=== PATIENT | male | born 1950 | race Caucasian/White ===

== ENCOUNTER 2020-10-15 21:19 | Inpatient (IN) | payer OTHER ==
[~2020-10-15] VITALS: Ht 177.8 cm; Wt 59.4 kg
[2020-10-16] MEDS ORDERED: LORazepam 2 MG TABLET PO PRN (01:15)
[2020-10-16] MEDS ORDERED: QUEtiapine FUMARATE 100 MG TABLET PO PRN (01:15)
[2020-10-16 01:18] LABS: BASOPHILS % (AUTO) 0.1 % (0.0-2.0); EOSINOPHILS % (AUTO) 0.6 % (1.0-6.0); HEMATOCRIT 34.5 % (41-53); HEMOGLOBIN 11.2 g/dL (13.5-17.5); LYMPHOCYTES # (AUTO) 1.4 K/uL (1.0-4.8); LYMPHOCYTES % (AUTO) 8.5 % (22.0-44.0); MEAN CORPUSCULAR HEMOGLOBIN 22.9 pg (26.0-34.0); MEAN CORPUSCULAR HGB CONC 32.6 G/dL (31.0-37.0); MEAN CORPUSCULAR VOLUME 70 fL (80-100); MONOCYTES # (AUTO) 1.1 K/uL (0.1-1.0); MONOCYTES % (AUTO) 6.4 % (2.0-9.0); NEUTROPHILS # (AUTO) 13.9 K/uL (1.8-7.7); NEUTROPHILS % (AUTO) 84.4 % (40.0-70.0); PLATELET COUNT (AUTO) 300 K/uL (150-450); RED CELL DISTRIBUTION WIDTH 17.1 % (11.5-14.5)
[2020-10-16 01:25] LABS: ANION GAP 9 mmol/L (8-16); CALCIUM, TOTAL 9.3 mg/dL (8.8-10.5); CARBON DIOXIDE 27 mmol/L (22-29); CHLORIDE 98 mmol/L (98-107); CREATININE 0.69 mg/dL (0.60-1.30); GLUCOSE,RANDOM 120 mg/dL (70-110); POTASSIUM 3.7 mmol/L (3.5-5.1); SODIUM SERUM 134 mmol/L (136-145); UREA NITROGEN, BLOOD 11 mg/dL (7-18)
[2020-10-16 01:37] LABS: ALANINE AMINOTRANSFERASE 23 U/L (12-78); ALBUMIN 2.1 g/dL (3.4-5.0); ALKALINE PHOSPHATASE 193 U/L (46-116); ASPARTATE AMINOTRANSFERASE 28 U/L (15-37); BILIRUBIN,TOTAL 0.8 mg/dL (0.1-1.0); TOTAL PROTEIN, SERUM 7.4 g/dL (6.4-8.2)
[2020-10-16 01:38] LABS: GLOMERULAR FILTR. RATE CALC > 60 mL/min (>60)
[2020-10-16 03:13] LABS: APPEARANCE,URINE CLOUDY (CLEAR); GLUCOSE, URINE (UA) NEGATIVE (NEGATIVE); KETONES,URINE 15 mg/dL (NEGATIVE); LEUKOCYTE ESTERASE ,URINE SMALL (NEGATIVE); NITRATE,URINE NEGATIVE (NEGATIVE); OCCULT BLOOD,URINE NEGATIVE (NEGATIVE); PH,URINE 5.5 (5.0-8.0); PROTEIN,URINE NEGATIVE (NEGATIVE)
[2020-10-16 03:19] LABS: AMPHET/METH SCREEN,URINE NEGATIVE (NEGATIVE); BARBITURATE SCREEN, URINE NEGATIVE (NEGATIVE); BENZODIAZEPINES SCREEN,URINE NEGATIVE (NEGATIVE); CANNABINOID SCREEN,URINE NEGATIVE (NEGATIVE); COCAINE SCREEN,URINE NEGATIVE (NEGATIVE); METHADONE SCREEN, URINE NEGATIVE (NEGATIVE); OPIATE SCREEN,URINE NEGATIVE (NEGATIVE)
[2020-10-16 03:21] LABS: BILIRUBIN,URINE PRELIM. POSITIVE (NEGATIVE); PHENCYCLIDINE SCREEN,URINE NEGATIVE (NEGATIVE)
[2020-10-16 04:12] LABS: AMORPHOUS SEDIMENT,UR Few /LPF (None Seen); BACTERIA,URINE Few /HPF (None Seen); CALCIUM OXALATE CRYSTALS,UR Few /LPF (None Seen); RBC,URINE 0-2 /HPF (0-2)
[2020-10-16 06:47] LABS: COVID AG,FIA SOURCE NASOPHARYNGEAL
[2020-10-16] MEDS ORDERED: 0.9% SODIUM CHLORIDE 10 ML SYRINGE IVP PRN (10:45)
[2020-10-16] MEDS ORDERED: SODIUM CHLORIDE 0.9% 1,650 ML IV ONE (10:45)
[2020-10-16] MEDS ORDERED: ACETAMINOPHEN 500 MG/ISO-OSM 50 ML IV ONE (10:45)
[2020-10-16 11:21] LABS: BASOPHILS % (AUTO) 0.8 % (0.0-2.0); HEMATOCRIT 34.3 % (41-53); HEMOGLOBIN 11.1 g/dL (13.5-17.5); LYMPHOCYTES # (AUTO) 1.3 K/uL (1.0-4.8); MEAN CORPUSCULAR HEMOGLOBIN 23.1 pg (26.0-34.0); MEAN CORPUSCULAR HGB CONC 32.4 G/dL (31.0-37.0); MEAN CORPUSCULAR VOLUME 71 fL (80-100); MONOCYTES # (AUTO) 1.2 K/uL (0.1-1.0); MONOCYTES % (AUTO) 6.4 % (2.0-9.0); NEUTROPHILS # (AUTO) 15.7 K/uL (1.8-7.7); NEUTROPHILS % (AUTO) 84.8 % (40.0-70.0); PLATELET COUNT (AUTO) 298 K/uL (150-450); RED BLOOD CELL COUNT(AUTO) 4.81 MIL/uL (4.50-5.90); RED CELL DISTRIBUTION WIDTH 17.2 % (11.5-14.5)
[2020-10-16 11:29] LABS: ANION GAP 10 mmol/L (8-16); CALCIUM, TOTAL 9.3 mg/dL (8.8-10.5); CARBON DIOXIDE 26 mmol/L (22-29); CHLORIDE 98 mmol/L (98-107); CREATININE 0.59 mg/dL (0.60-1.30); GLOMERULAR FILTR. RATE CALC > 60 mL/min (>60); GLUCOSE,RANDOM 95 mg/dL (70-110); POTASSIUM 3.8 mmol/L (3.5-5.1); SODIUM SERUM 134 mmol/L (136-145); UREA NITROGEN, BLOOD 10 mg/dL (7-18)
[2020-10-16 11:31] LABS: INR 1.3 (0.9-1.1); PROTHROMBIN TIME 13.4 SEC (9.4-11.6)
[2020-10-16 11:35] LABS: ALANINE AMINOTRANSFERASE 20 U/L (12-78); ALBUMIN 2.1 g/dL (3.4-5.0); ALKALINE PHOSPHATASE 186 U/L (46-116); ASPARTATE AMINOTRANSFERASE 28 U/L (15-37); CREATINE KINASE, TOTAL ONLY 50 U/L (39-308); TOTAL PROTEIN, SERUM 7.3 g/dL (6.4-8.2)
[2020-10-16 11:39] LABS: LACTIC ACID 0.9 mmol/L (0.4-2.0)
[2020-10-16 11:46] LABS: B-TYPE NATRIURETIC PEPTIDE 51 pg/mL (0-100)
[2020-10-16] MEDS ORDERED: SODIUM CHLORIDE 0.9% 1,000 ML IV ONE (12:30)
[2020-10-16] MEDS ORDERED: SODIUM CHLORIDE 0.9% 250 ML IV ONE (14:00)
[2020-10-16] MEDS: SODIUM CHLORIDE 0.9% 1,000 ML IV SCH (15:43)
[2020-10-17 02:20] LABS: HDL CHOLESTEROL 25 mg/dL (40-60); TRIGLYCERIDES 94 mg/dL (15-150)
[2020-10-17 03:23] LABS: CHOLESTEROL 176 mg/dL (131-200); LDL CHOL (CALC.) 132 mg/dL (0-130)
[2020-10-17] MEDS: SODIUM CHLORIDE 0.9% 1,000 ML IV SCH ×2 (04:20→19:59)
[2020-10-17] MEDS: CefTRIAXone 1 GM/DEXTROSE 50 ML IV SCH (14:42)
[2020-10-17] MEDS: AZITHROMYCIN 500 MG/NS 250 ML IV SCH (14:42)
[2020-10-17 18:27] VITALS: BP 101/60
[2020-10-17 19:36] VITALS: BP 125/76
[2020-10-18] VITALS (7 sets, daily range): BP systolic 91–110; BP diastolic 57–74
[2020-10-18] MEDS: SODIUM CHLORIDE 0.9% 1,000 ML IV SCH (08:28)
[2020-10-18] MEDS: CefTRIAXone 1 GM/DEXTROSE 50 ML IV SCH (13:46)
[2020-10-18 14:20] LABS: BASOPHILS % (AUTO) 0.3 % (0.0-2.0); EOSINOPHILS % (AUTO) 3.7 % (1.0-6.0); HEMATOCRIT 32.4 % (41-53); HEMOGLOBIN 10.2 g/dL (13.5-17.5); LYMPHOCYTES # (AUTO) 1.2 K/uL (1.0-4.8); LYMPHOCYTES % (AUTO) 8.2 % (22.0-44.0); MEAN CORPUSCULAR HEMOGLOBIN 22.6 pg (26.0-34.0); MEAN CORPUSCULAR HGB CONC 31.5 G/dL (31.0-37.0); MEAN CORPUSCULAR VOLUME 72 fL (80-100); MONOCYTES # (AUTO) 0.9 K/uL (0.1-1.0); MONOCYTES % (AUTO) 6.1 % (2.0-9.0); NEUTROPHILS # (AUTO) 11.8 K/uL (1.8-7.7); NEUTROPHILS % (AUTO) 81.7 % (40.0-70.0); PLATELET COUNT (AUTO) 290 K/uL (150-450); RED BLOOD CELL COUNT(AUTO) 4.51 MIL/uL (4.50-5.90); RED CELL DISTRIBUTION WIDTH 17.2 % (11.5-14.5)
[2020-10-18 14:37] LABS: ANION GAP 11 mmol/L (8-16); CARBON DIOXIDE 25 mmol/L (22-29); CHLORIDE 99 mmol/L (98-107); GLUCOSE,RANDOM 112 mg/dL (70-110); POTASSIUM 3.1 mmol/L (3.5-5.1); SODIUM SERUM 135 mmol/L (136-145); UREA NITROGEN, BLOOD 5 mg/dL (7-18)
[2020-10-18 14:40] LABS: ALANINE AMINOTRANSFERASE 20 U/L (12-78); ALBUMIN 1.5 g/dL (3.4-5.0); ALKALINE PHOSPHATASE 217 U/L (46-116); ASPARTATE AMINOTRANSFERASE 43 U/L (15-37); BILIRUBIN,TOTAL 0.6 mg/dL (0.1-1.0); TOTAL PROTEIN, SERUM 5.9 g/dL (6.4-8.2)
[2020-10-18 14:42] LABS: GLOMERULAR FILTR. RATE CALC > 60 mL/min (>60)
[2020-10-18] MEDS: AZITHROMYCIN 500 MG/NS 250 ML IV SCH (15:20)
[2020-10-18] MEDS ORDERED: POTASSIUM CHL 10 MEQ/WATER 50 ML IV PRN (18:15)
[2020-10-18] MEDS: POTASSIUM CHLORIDE 20 MEQ ER TABLET PO PRN (18:24)
[2020-10-19] MEDS: SODIUM CHLORIDE 0.9% 1,000 ML IV SCH ×2 (03:59→16:12)
[2020-10-19 04:15] VITALS: BP 122/64
[2020-10-19 07:25] VITALS: BP 111/68
[2020-10-19 08:49] LABS: BASOPHILS % (AUTO) 0.2 % (0.0-2.0); EOSINOPHILS % (AUTO) 3.5 % (1.0-6.0); HEMATOCRIT 32.5 % (41-53); HEMOGLOBIN 10.4 g/dL (13.5-17.5); LYMPHOCYTES # (AUTO) 1.4 K/uL (1.0-4.8); LYMPHOCYTES % (AUTO) 9.8 % (22.0-44.0); MEAN CORPUSCULAR HEMOGLOBIN 22.8 pg (26.0-34.0); MEAN CORPUSCULAR VOLUME 71 fL (80-100); MONOCYTES # (AUTO) 1.1 K/uL (0.1-1.0); MONOCYTES % (AUTO) 7.5 % (2.0-9.0); NEUTROPHILS # (AUTO) 11.2 K/uL (1.8-7.7); PLATELET COUNT (AUTO) 290 K/uL (150-450); RED BLOOD CELL COUNT(AUTO) 4.56 MIL/uL (4.50-5.90); RED CELL DISTRIBUTION WIDTH 17.7 % (11.5-14.5)
[2020-10-19 09:05] LABS: INR 1.3 (0.9-1.1); PROTHROMBIN TIME 13.6 SEC (9.4-11.6)
[2020-10-19 09:08] LABS: ALANINE AMINOTRANSFERASE 28 U/L (12-78); ALBUMIN 1.7 g/dL (3.4-5.0); ALKALINE PHOSPHATASE 236 U/L (46-116); ANION GAP 10 mmol/L (8-16); ASPARTATE AMINOTRANSFERASE 60 U/L (15-37); BILIRUBIN,TOTAL 0.8 mg/dL (0.1-1.0); CARBON DIOXIDE 25 mmol/L (22-29); CHLORIDE 100 mmol/L (98-107); CREATININE 0.51 mg/dL (0.60-1.30); GLUCOSE,RANDOM 82 mg/dL (70-110); POTASSIUM 3.9 mmol/L (3.5-5.1); SODIUM SERUM 135 mmol/L (136-145); TOTAL PROTEIN, SERUM 6.2 g/dL (6.4-8.2); UREA NITROGEN, BLOOD 3 mg/dL (7-18)
[2020-10-19 09:09] LABS: GLOMERULAR FILTR. RATE CALC > 60 mL/min (>60)
[2020-10-19 11:02] VITALS: BP 102/59
[2020-10-19 13:11] LABS: PHOSPHORUS 2.4 mg/dL (2.5-4.9)
[2020-10-19] MEDS: AZITHROMYCIN 500 MG/NS 250 ML IV SCH (14:00)
[2020-10-19] MEDS: CefTRIAXone 1 GM/DEXTROSE 50 ML IV SCH (14:19)
[2020-10-19 15:01] VITALS: BP 91/62
[2020-10-19] MEDS: MIRTAZAPINE 15 MG TABLET PO SCH (19:47)
[2020-10-19 19:52] VITALS: BP 104/62
[2020-10-20] VITALS (8 sets, daily range): BP systolic 89–119; BP diastolic 46–72
[2020-10-20] MEDS: THIAMINE 100 MG TABLET PO SCH (09:00)
[2020-10-20] MEDS: CefTRIAXone 1 GM/DEXTROSE 50 ML IV SCH (14:18)
[2020-10-20] MEDS: SODIUM CHLORIDE 0.9% 1,000 ML IV SCH (21:00)
[2020-10-20] MEDS: MIRTAZAPINE 15 MG TABLET PO SCH (21:00)
[2020-10-21] MEDS: AZITHROMYCIN 500 MG/NS 250 ML IV SCH ×2 (04:23→14:37)
[2020-10-21 04:27] VITALS: BP 110/52
[2020-10-21 08:00] VITALS: BP 109/48
[2020-10-21] MEDS: THIAMINE 100 MG TABLET PO SCH (08:23)
[2020-10-21] MEDS ORDERED: LORazepam 2 MG/ML VIAL IVP ONE ×2 (10:15)
[2020-10-21] MEDS: SODIUM CHLORIDE 0.9% 1,000 ML IV SCH (10:51)
[2020-10-21] MEDS ORDERED: NALOXONE HCL 0.4 MG/ML VIAL ONE (11:32)
[2020-10-21] MEDS ORDERED: FentaNYL CITRATE PF 100 MCG/2 ML VIAL ONE (11:32)
[2020-10-21] MEDS ORDERED: MIDAZOLAM HCL 2 MG/2 ML VIAL ONE (11:32)
[2020-10-21] MEDS ORDERED: FLUMAZENIL 0.1 MG/ML 5 ML VIAL IVP ONE (11:32)
[2020-10-21] MEDS ORDERED: MIDAZOLAM HCL 2 MG/2 ML VIAL IVP ONE ×2 (12:00→12:10)
[2020-10-21 12:57] VITALS: BP 138/89
[2020-10-21] MEDS: CefTRIAXone 1 GM/DEXTROSE 50 ML IV SCH (14:44)
[2020-10-21 15:57] VITALS: BP 100/64
[2020-10-21 19:34] VITALS: BP 113/81
[2020-10-21] MEDS: HEPARIN SODIUM,PORCINE 5,000 UNITS/ML VIAL SQ SCH ×2 (20:13→20:16)
[2020-10-21] MEDS: MIRTAZAPINE 15 MG TABLET PO SCH (20:13)
[2020-10-21 23:09] VITALS: BP 104/66
[2020-10-22] MEDS: SODIUM CHLORIDE 0.9% 1,000 ML IV SCH ×2 (03:27→20:05)
[2020-10-22] MEDS: AZITHROMYCIN 500 MG/NS 250 ML IV SCH (04:08)
[2020-10-22 04:12] VITALS: BP 102/62
[2020-10-22 06:05] LABS: BASOPHILS % (AUTO) 0.8 % (0.0-2.0); EOSINOPHILS % (AUTO) 3.9 % (1.0-6.0); HEMATOCRIT 32.8 % (41-53); HEMOGLOBIN 10.2 g/dL (13.5-17.5); LYMPHOCYTES # (AUTO) 1.8 K/uL (1.0-4.8); MEAN CORPUSCULAR HEMOGLOBIN 22.4 pg (26.0-34.0); MEAN CORPUSCULAR HGB CONC 31.1 G/dL (31.0-37.0); MEAN CORPUSCULAR VOLUME 72 fL (80-100); MONOCYTES # (AUTO) 1.6 K/uL (0.1-1.0); NEUTROPHILS # (AUTO) 11.9 K/uL (1.8-7.7); NEUTROPHILS % (AUTO) 74.3 % (40.0-70.0); PLATELET COUNT (AUTO) 324 K/uL (150-450); RED BLOOD CELL COUNT(AUTO) 4.56 MIL/uL (4.50-5.90); RED CELL DISTRIBUTION WIDTH 17.3 % (11.5-14.5)
[2020-10-22 06:22] LABS: ALANINE AMINOTRANSFERASE 20 U/L (12-78); ALBUMIN 1.6 g/dL (3.4-5.0); ALKALINE PHOSPHATASE 194 U/L (46-116); ANION GAP 11 mmol/L (8-16); ASPARTATE AMINOTRANSFERASE 42 U/L (15-37); BILIRUBIN,TOTAL 0.8 mg/dL (0.1-1.0); CALCIUM, TOTAL 8.1 mg/dL (8.8-10.5); CARBON DIOXIDE 21 mmol/L (22-29); CHLORIDE 101 mmol/L (98-107); GLOMERULAR FILTR. RATE CALC > 60 mL/min (>60); GLUCOSE,RANDOM 65 mg/dL (70-110); POTASSIUM 3.4 mmol/L (3.5-5.1); SODIUM SERUM 133 mmol/L (136-145); TOTAL PROTEIN, SERUM 6.1 g/dL (6.4-8.2); UREA NITROGEN, BLOOD 3 mg/dL (7-18)
[2020-10-22 07:24] VITALS: BP 106/71
[2020-10-22] MEDS: HEPARIN SODIUM,PORCINE 5,000 UNITS/ML VIAL SQ SCH ×2 (09:00→20:10)
[2020-10-22] MEDS ORDERED: SODIUM CHLORIDE 0.9% 1,000 ML ONE (12:48)
[2020-10-22] MEDS ORDERED: SODIUM CHLORIDE 0.9% 1,000 ML IV ONE (13:00)
[2020-10-22] MEDS ORDERED: RINGERS SOLUTION,LACTATED 1,000 ML IV ONE (13:16)
[2020-10-22 15:36] VITALS: BP 100/60
[2020-10-22] MEDS: CefTRIAXone 1 GM/DEXTROSE 50 ML IV SCH (16:10)
[2020-10-22] MEDS: THIAMINE 100 MG TABLET PO SCH (16:12)
[2020-10-22] MEDS: POTASSIUM CHLORIDE 20 MEQ ER TABLET PO PRN (17:35)
[2020-10-22] MEDS: MIRTAZAPINE 15 MG TABLET PO SCH (20:05)
[2020-10-22 20:09] VITALS: BP 111/66
[2020-10-23] VITALS: BP 110/77
[2020-10-23] MEDS: POTASSIUM CHLORIDE 20 MEQ ER TABLET PO PRN (01:30)
[2020-10-23] MEDS ORDERED: EPHEDrine SULFATE 50 MG/ML VIAL IM ONE (03:51)
[2020-10-23] MEDS ORDERED: LIDOCAINE/PF 2% 5 ML VIAL IM ONE (03:51)
[2020-10-23] MEDS ORDERED: 0.9% SODIUM CHLORIDE 10 ML VIAL IVP ONE (03:51)
[2020-10-23] MEDS ORDERED: PROPOFOL 1% 20 ML VIAL IVP ONE (03:51)
[2020-10-23] MEDS ORDERED: FentaNYL CITRATE PF 100 MCG/2 ML VIAL IVP ONE (03:51)
[2020-10-23 04:05] VITALS: BP 103/68
[2020-10-23] MEDS: AZITHROMYCIN 500 MG/NS 250 ML IV SCH (04:21)
[2020-10-23 07:29] VITALS: BP 103/67
[2020-10-23] MEDS: THIAMINE 100 MG TABLET PO SCH (08:13)
[2020-10-23] MEDS: HEPARIN SODIUM,PORCINE 5,000 UNITS/ML VIAL SQ SCH ×2 (08:14→20:21)
[2020-10-23 11:40] LABS: BASOPHILS % (AUTO) 0.9 % (0.0-2.0); EOSINOPHILS % (AUTO) 3.9 % (1.0-6.0); HEMATOCRIT 32.4 % (41-53); HEMOGLOBIN 10.2 g/dL (13.5-17.5); LYMPHOCYTES # (AUTO) 1.3 K/uL (1.0-4.8); LYMPHOCYTES % (AUTO) 10.1 % (22.0-44.0); MEAN CORPUSCULAR HEMOGLOBIN 22.5 pg (26.0-34.0); MEAN CORPUSCULAR HGB CONC 31.5 G/dL (31.0-37.0); MEAN CORPUSCULAR VOLUME 71 fL (80-100); MONOCYTES # (AUTO) 1.3 K/uL (0.1-1.0); MONOCYTES % (AUTO) 10.1 % (2.0-9.0); NEUTROPHILS # (AUTO) 9.5 K/uL (1.8-7.7); PLATELET COUNT (AUTO) 308 K/uL (150-450); RED BLOOD CELL COUNT(AUTO) 4.53 MIL/uL (4.50-5.90); RED CELL DISTRIBUTION WIDTH 17.4 % (11.5-14.5)
[2020-10-23 12:01] LABS: ALANINE AMINOTRANSFERASE 20 U/L (12-78); ALBUMIN 1.6 g/dL (3.4-5.0); ALKALINE PHOSPHATASE 191 U/L (46-116); ANION GAP 11 mmol/L (8-16); ASPARTATE AMINOTRANSFERASE 47 U/L (15-37); BILIRUBIN,TOTAL 0.8 mg/dL (0.1-1.0); CALCIUM, TOTAL 8.4 mg/dL (8.8-10.5); CARBON DIOXIDE 25 mmol/L (22-29); CHLORIDE 100 mmol/L (98-107); CREATININE 0.38 mg/dL (0.60-1.30); GLOMERULAR FILTR. RATE CALC > 60 mL/min (>60); GLUCOSE,RANDOM 76 mg/dL (70-110); POTASSIUM 3.4 mmol/L (3.5-5.1); SODIUM SERUM 136 mmol/L (136-145); TOTAL PROTEIN, SERUM 5.9 g/dL (6.4-8.2); UREA NITROGEN, BLOOD 3 mg/dL (7-18)
[2020-10-23 12:19] LABS: PHOSPHORUS 2.3 mg/dL (2.5-4.9)
[2020-10-23] MEDS ORDERED: DEXTROSE 5% IV ONE ×2 (13:00→14:00)
[2020-10-23] MEDS ORDERED: MAGNESIUM SULFATE 4 GM/WATER 100 ML IV PRN (13:00)
[2020-10-23] MEDS ORDERED: WATER IV ONE ×2 (13:00→14:00)
[2020-10-23] MEDS ORDERED: MAGNESIUM OXIDE 400 MG TABLET PO PRN (13:00)
[2020-10-23] MEDS ORDERED: POTASSIUM PHOS M BASIC D BASIC IV ONE ×2 (13:00→14:00)
[2020-10-23] MEDS: CefTRIAXone 1 GM/DEXTROSE 50 ML IV SCH (13:15)
[2020-10-23] MEDS: SODIUM CHLORIDE 0.9% 1,000 ML IV SCH (13:15)
[2020-10-23] MEDS: MAGNESIUM SULFATE 2 GM/WATER 50 ML IV PRN (14:13)
[2020-10-23 15:39] VITALS: BP 105/72
[2020-10-23 19:09] VITALS: BP 108/74
[2020-10-23] MEDS: MIRTAZAPINE 15 MG TABLET PO SCH (20:21)
[2020-10-23 23:20] VITALS: BP 110/70
[2020-10-24] MEDS: AZITHROMYCIN 500 MG/NS 250 ML IV SCH (03:52)
[2020-10-24] MEDS: SODIUM CHLORIDE 0.9% 1,000 ML IV SCH ×2 (04:00→17:20)
[2020-10-24 05:00] VITALS: BP 106/72
[2020-10-24 08:16] LABS: BASOPHILS % (AUTO) 0.7 % (0.0-2.0); EOSINOPHILS % (AUTO) 2.9 % (1.0-6.0); HEMATOCRIT 34.1 % (41-53); HEMOGLOBIN 10.7 g/dL (13.5-17.5); LYMPHOCYTES # (AUTO) 1.7 K/uL (1.0-4.8); LYMPHOCYTES % (AUTO) 11.4 % (22.0-44.0); MEAN CORPUSCULAR HEMOGLOBIN 22.6 pg (26.0-34.0); MEAN CORPUSCULAR HGB CONC 31.3 G/dL (31.0-37.0); MEAN CORPUSCULAR VOLUME 72 fL (80-100); MONOCYTES # (AUTO) 1.2 K/uL (0.1-1.0); MONOCYTES % (AUTO) 7.9 % (2.0-9.0); NEUTROPHILS # (AUTO) 11.4 K/uL (1.8-7.7); NEUTROPHILS % (AUTO) 77.1 % (40.0-70.0); PLATELET COUNT (AUTO) 304 K/uL (150-450); RED BLOOD CELL COUNT(AUTO) 4.71 MIL/uL (4.50-5.90); RED CELL DISTRIBUTION WIDTH 17.5 % (11.5-14.5)
[2020-10-24] MEDS: THIAMINE 100 MG TABLET PO SCH (08:19)
[2020-10-24] MEDS: HEPARIN SODIUM,PORCINE 5,000 UNITS/ML VIAL SQ SCH ×2 (08:20→20:08)
[2020-10-24 08:42] LABS: ALANINE AMINOTRANSFERASE 18 U/L (12-78); ALBUMIN 1.6 g/dL (3.4-5.0); ALKALINE PHOSPHATASE 195 U/L (46-116); ANION GAP 8 mmol/L (8-16); ASPARTATE AMINOTRANSFERASE 46 U/L (15-37); BILIRUBIN,TOTAL 0.7 mg/dL (0.1-1.0); CALCIUM, TOTAL 8.4 mg/dL (8.8-10.5); CARBON DIOXIDE 25 mmol/L (22-29); CHLORIDE 102 mmol/L (98-107); CREATININE 0.43 mg/dL (0.60-1.30); GLUCOSE,RANDOM 85 mg/dL (70-110); POTASSIUM 3.6 mmol/L (3.5-5.1); SODIUM SERUM 135 mmol/L (136-145); UREA NITROGEN, BLOOD 4 mg/dL (7-18)
[2020-10-24 08:47] LABS: GLOMERULAR FILTR. RATE CALC > 60 mL/min (>60)
[2020-10-24 10:17] VITALS: BP 108/65
[2020-10-24] MEDS: MAGNESIUM SULFATE 2 GM/WATER 50 ML IV PRN (10:20)
[2020-10-24] MEDS: CefTRIAXone 1 GM/DEXTROSE 50 ML IV SCH (14:32)
[2020-10-24 16:20] VITALS: BP 100/65
[2020-10-24] MEDS: MIRTAZAPINE 15 MG TABLET PO SCH (20:07)
[2020-10-24 20:10] VITALS: BP 104/66
[2020-10-25] MEDS: AZITHROMYCIN 500 MG/NS 250 ML IV SCH (04:20)
[2020-10-25] MEDS: SODIUM CHLORIDE 0.9% 1,000 ML IV SCH ×2 (04:21→21:23)
[2020-10-25 05:15] VITALS: BP 113/72
[2020-10-25 07:26] VITALS: BP 116/74
[2020-10-25] MEDS: THIAMINE 100 MG TABLET PO SCH (08:09)
[2020-10-25] MEDS: HEPARIN SODIUM,PORCINE 5,000 UNITS/ML VIAL SQ SCH ×2 (08:09→21:22)
[2020-10-25 14:24] LABS: BASOPHILS % (AUTO) 0.6 % (0.0-2.0); EOSINOPHILS % (AUTO) 3.5 % (1.0-6.0); HEMATOCRIT 34.4 % (41-53); HEMOGLOBIN 10.8 g/dL (13.5-17.5); LYMPHOCYTES # (AUTO) 1.3 K/uL (1.0-4.8); LYMPHOCYTES % (AUTO) 9.7 % (22.0-44.0); MEAN CORPUSCULAR HEMOGLOBIN 22.5 pg (26.0-34.0); MEAN CORPUSCULAR HGB CONC 31.3 G/dL (31.0-37.0); MEAN CORPUSCULAR VOLUME 72 fL (80-100); MONOCYTES % (AUTO) 7.4 % (2.0-9.0); NEUTROPHILS # (AUTO) 10.9 K/uL (1.8-7.7); NEUTROPHILS % (AUTO) 78.8 % (40.0-70.0); PLATELET COUNT (AUTO) 332 K/uL (150-450); RED BLOOD CELL COUNT(AUTO) 4.79 MIL/uL (4.50-5.90); RED CELL DISTRIBUTION WIDTH 17.6 % (11.5-14.5)
[2020-10-25 14:35] LABS: ALANINE AMINOTRANSFERASE 20 U/L (12-78); ALBUMIN 1.6 g/dL (3.4-5.0); ALKALINE PHOSPHATASE 195 U/L (46-116); ANION GAP 7 mmol/L (8-16); ASPARTATE AMINOTRANSFERASE 38 U/L (15-37); BILIRUBIN,TOTAL 0.6 mg/dL (0.1-1.0); CALCIUM, TOTAL 8.3 mg/dL (8.8-10.5); CARBON DIOXIDE 29 mmol/L (22-29); CHLORIDE 99 mmol/L (98-107); CREATININE 0.42 mg/dL (0.60-1.30); GLUCOSE,RANDOM 87 mg/dL (70-110); POTASSIUM 3.5 mmol/L (3.5-5.1); SODIUM SERUM 135 mmol/L (136-145); TOTAL PROTEIN, SERUM 6.2 g/dL (6.4-8.2); UREA NITROGEN, BLOOD 4 mg/dL (7-18)
[2020-10-25 14:37] LABS: GLOMERULAR FILTR. RATE CALC > 60 mL/min (>60)
[2020-10-25] MEDS: CefTRIAXone 1 GM/DEXTROSE 50 ML IV SCH (15:00)
[2020-10-25 15:02] VITALS: BP 114/68
[2020-10-25] MEDS: MAGNESIUM SULFATE 2 GM/WATER 50 ML IV PRN (16:16)
[2020-10-25 20:29] VITALS: BP 98/58
[2020-10-25] MEDS: MIRTAZAPINE 15 MG TABLET PO SCH (21:20)
[2020-10-26] MEDS: AZITHROMYCIN 500 MG/NS 250 ML IV SCH (03:14)
[2020-10-26 04:48] VITALS: BP 100/54
[2020-10-26 07:48] VITALS: BP 109/72
[2020-10-26] MEDS: THIAMINE 100 MG TABLET PO SCH (08:19)
[2020-10-26] MEDS: HEPARIN SODIUM,PORCINE 5,000 UNITS/ML VIAL SQ SCH ×2 (08:19→21:04)
[2020-10-26] MEDS: DEXTROSE 5%-0.9% SODIUM CHL 1,000 ML IV SCH (10:49)
[2020-10-26] MEDS: CefTRIAXone 1 GM/DEXTROSE 50 ML IV SCH (14:09)
[2020-10-26 15:11] VITALS: BP 121/64
[2020-10-26] MEDS: MORPHINE SULFATE 2 MG/ML SYRINGE IVP PRN (18:19)
[2020-10-26 19:16] VITALS: BP 111/76
[2020-10-26] MEDS: MIRTAZAPINE 15 MG TABLET PO SCH (20:55)
[2020-10-27] MEDS: MORPHINE SULFATE 2 MG/ML SYRINGE IVP PRN (00:55)
[2020-10-27] MEDS: AZITHROMYCIN 500 MG/NS 250 ML IV SCH (03:44)
[2020-10-27] MEDS: DEXTROSE 5%-0.9% SODIUM CHL 1,000 ML IV SCH ×2 (03:44→20:13)
[2020-10-27 05:11] VITALS: BP 122/72
[2020-10-27 07:21] VITALS: BP 112/72
[2020-10-27] MEDS: THIAMINE 100 MG TABLET PO SCH (08:26)
[2020-10-27] MEDS: HEPARIN SODIUM,PORCINE 5,000 UNITS/ML VIAL SQ SCH ×2 (08:26→20:13)
[2020-10-27] MEDS: CefTRIAXone 1 GM/DEXTROSE 50 ML IV SCH (14:34)
[2020-10-27 15:53] VITALS: BP 117/61
[2020-10-27 20:00] VITALS: BP 116/50
[2020-10-27] MEDS: MIRTAZAPINE 15 MG TABLET PO SCH (20:13)
[2020-10-28] VITALS: BP 109/60
[2020-10-28] MEDS ORDERED: SODIUM CHLORIDE 0.9% 500 ML IV ONE (03:26)
[2020-10-28] MEDS: AZITHROMYCIN 500 MG/NS 250 ML IV SCH (03:32)
[2020-10-28 06:00] VITALS: BP 115/60
[2020-10-28 08:38] VITALS: BP 97/57
[2020-10-28] MEDS: HEPARIN SODIUM,PORCINE 5,000 UNITS/ML VIAL SQ SCH ×2 (09:10→20:38)
[2020-10-28] MEDS: THIAMINE 100 MG TABLET PO SCH (09:10)
[2020-10-28] MEDS: CefTRIAXone 1 GM/DEXTROSE 50 ML IV SCH (14:49)
[2020-10-28] MEDS: DEXTROSE 5%-0.9% SODIUM CHL 1,000 ML IV SCH (14:49)
[2020-10-28 16:22] VITALS: BP 101/72
[2020-10-28 19:41] VITALS: BP 101/58
[2020-10-28] MEDS: MIRTAZAPINE 15 MG TABLET PO SCH (20:40)
[2020-10-28] MEDS: ZOLPIDEM TARTRATE 10 MG TABLET PO PRN (20:42)
[2020-10-28 23:25] VITALS: BP 108/74
[2020-10-29] MEDS ORDERED: SODIUM CHLORIDE 0.9% 500 ML IV ONE (02:26)
[2020-10-29] MEDS: AZITHROMYCIN 500 MG/NS 250 ML IV SCH (03:20)
[2020-10-29 03:35] VITALS: BP 105/60
[2020-10-29] MEDS: DEXTROSE 5%-0.9% SODIUM CHL 1,000 ML IV SCH ×2 (05:33→20:08)
[2020-10-29 07:50] VITALS: BP 109/64
[2020-10-29] MEDS: HEPARIN SODIUM,PORCINE 5,000 UNITS/ML VIAL SQ SCH ×2 (08:52→20:06)
[2020-10-29] MEDS: THIAMINE 100 MG TABLET PO SCH (08:52)
[2020-10-29] MEDS: CefTRIAXone 1 GM/DEXTROSE 50 ML IV SCH (13:03)
[2020-10-29 15:30] VITALS: BP 99/65
[2020-10-29 20:00] VITALS: BP 97/58
[2020-10-29] MEDS: ZOLPIDEM TARTRATE 10 MG TABLET PO PRN (20:06)
[2020-10-29] MEDS: MIRTAZAPINE 15 MG TABLET PO SCH (20:06)
[2020-10-30] MEDS: AZITHROMYCIN 500 MG/NS 250 ML IV SCH (03:36)
[2020-10-30 04:20] VITALS: BP 104/59
[2020-10-30 07:56] VITALS: BP 109/68
[2020-10-30] MEDS: HEPARIN SODIUM,PORCINE 5,000 UNITS/ML VIAL SQ SCH ×2 (08:09→20:06)
[2020-10-30] MEDS: THIAMINE 100 MG TABLET PO SCH (08:09)
[2020-10-30] MEDS: CefTRIAXone 1 GM/DEXTROSE 50 ML IV SCH (15:00)
[2020-10-30 16:03] VITALS: BP 105/61
[2020-10-30] MEDS: MIRTAZAPINE 15 MG TABLET PO SCH (20:05)
[2020-10-30 20:18] VITALS: BP 155/55
[2020-10-30] MEDS: DEXTROSE 5%-0.9% SODIUM CHL 1,000 ML IV SCH (23:00)
[2020-10-31 02:56] VITALS: BP 108/77
[2020-10-31] MEDS: AZITHROMYCIN 500 MG/NS 250 ML IV SCH (03:20)
[2020-10-31] MEDS: MORPHINE SULFATE 2 MG/ML SYRINGE IVP PRN (04:20)
[2020-10-31 07:16] VITALS: BP 104/64
[2020-10-31] MEDS: HEPARIN SODIUM,PORCINE 5,000 UNITS/ML VIAL SQ SCH (08:25)
[2020-10-31] MEDS: THIAMINE 100 MG TABLET PO SCH (08:25)
[2020-10-31] MEDS: DEXTROSE 5%-0.9% SODIUM CHL 1,000 ML IV SCH ×2 (08:25→23:53)
[2020-10-31] MEDS: CefTRIAXone 1 GM/DEXTROSE 50 ML IV SCH (14:41)
[2020-10-31 15:22] VITALS: BP 96/60
[2020-10-31 20:40] VITALS: BP 108/63
[2020-10-31] MEDS: MIRTAZAPINE 15 MG TABLET PO SCH (21:00)
[2020-11-01 00:20] VITALS: BP 75/46
[2020-11-01] MEDS: AZITHROMYCIN 500 MG/NS 250 ML IV SCH (03:15)
[2020-11-01 04:00] VITALS: BP 78/52
[2020-11-01] MEDS: MORPHINE SULFATE 2 MG/ML SYRINGE IVP PRN ×3 (07:36→18:44)
[2020-11-01] MEDS: THIAMINE 100 MG TABLET PO SCH (07:44)
[2020-11-01 08:39] VITALS: BP 75/47
[2020-11-01] MEDS: CefTRIAXone 1 GM/DEXTROSE 50 ML IV SCH (14:27)
[2020-11-01 15:42] VITALS: BP 137/78
[2020-11-01] MEDS: DEXTROSE 5%-0.9% SODIUM CHL 1,000 ML IV SCH (16:19)
[2020-11-01 19:20] VITALS: BP 86/52
== END 2020-11-01 20:00 | DRG 180 ==
LOC: EMS 21:22 → 5S 10-17 16:00 → 5N 10-17 17:40 → 5S 10-20 10:28 → 6N 10-21 18:45
PROVIDERS: ADMIT Hospitalist; ATTEND Hospitalist
PROC: 0BBC3ZX Excision of Right Upper Lung Lobe, Percutaneous Approach, Diagnostic (ICD-10-PCS; principal; 2020-10-22)
DX: C34.11 Malignant neoplasm of upper lobe, right bronchus or lung (principal); E43 Unspecified severe protein-calorie malnutrition; E87.1 Hypo-osmolality and hyponatremia; Z68.1 Body mass index [BMI] 19.9 or less, adult; D72.829 Elevated white blood cell count, unspecified; D64.9 Anemia, unspecified; F17.200 Nicotine dependence, unspecified, uncomplicated; R00.0 Tachycardia, unspecified; F32.9 Major depressive disorder, single episode, unspecified; J43.9 Emphysema, unspecified; F17.210 Nicotine dependence, cigarettes, uncomplicated; R62.7 Adult failure to thrive; Z91.14 Patient's other noncompliance with medication regimen; Z66 Do not resuscitate; Z20.822 Contact with and (suspected) exposure to COVID-19
CPT/HCPCS: 77012; 80053; 80061; 81001; 82040; 82550; 83605; 83735; 83880; 84100; 84132; 84145; 84484; 85025; 85610; 85730; 87015; 87040; 87070; 87101; 87176; 87205; 87206; 88305; 88341; 88342; 92610; 94799; 97162; 97166; 97530; 97535; 99285; G0378; G0480; J0131; J0456; J0696; J1644; J2060; J2250; J2270; J2310; J2704; J3010; J3475; J3490; J7030; J7040; J7042; J7050; J7060; J7120; 36415-L1; 36415-TC; U0003